=== PATIENT | female | born 1965 | race Caucasian/White ===

== ENCOUNTER 2018-07-15 18:45 | Emergency (ER) | payer OTHER ==
[2018-07-15] MEDS: IBUPROFEN 600 MG TAB PO (21:19)
== END 2018-07-15 21:25 | disposition home or self-care (01) ==
LOC: FTE 18:45
DX: S99.911A Unspecified injury of right ankle, initial encounter (principal); I10 Essential (primary) hypertension; W22.8XXA Striking against or struck by other objects, initial encounter; Y92.9 Unspecified place or not applicable
CPT/HCPCS: 73610; 73610-RT; 73630; 81025; 99283-25